=== PATIENT | male | born 1990 | race Caucasian/White ===

== ENCOUNTER 2016-04-22 23:07 | Emergency (ER) | payer BC, OTHER ==
[2016-04-22 23:19] LABS: MEAN CORPUSCULAR HEMOGLOBIN 29.8 pg (27.0-33.0); MEAN CORPUSCULAR HGB CONC 34.4 g/dl (32.0-36.5); MEAN CORPUSCULAR VOLUME 86.6 fl (80.0-96.0); RED CELL DISTRIBUTION WIDTH 12.8 % (11.5-14.5); WHITE BLOOD COUNT 9.9 K/mm3 (4.0-10.0)
[2016-04-22 23:47] LABS: ANION GAP 9 MEQ/L (8-16); BLOOD UREA NITROGEN 13 MG/DL (7-18); CALCIUM LEVEL 8.8 MG/DL (8.5-10.1); CARBON DIOXIDE LEVEL 25 MEQ/L (21-32); CHLORIDE LEVEL 108 MEQ/L (98-107); CREATININE FOR GFR 0.97 MG/DL (0.70-1.30); GLOMERULAR FILTRATION RATE > 60.0 (>60); GLUCOSE, FASTING 109 MG/DL (70-105); POTASSIUM SERUM 3.1 MEQ/L (3.5-5.1); SODIUM LEVEL 142 MEQ/L (136-145)
[2016-04-23 00:13] LABS: AMPHETAMINES LEVEL URINE NEGATIVE (NEGATIVE); BENZODIAZEPINES URINE NEGATIVE (NEGATIVE); COCAINE METABOLITE URINE NEGATIVE (NEGATIVE); CONTROL LINE INT CTR LINE PRESENT; METHADONE URINE NEGATIVE (NEGATIVE); OPIATES URINE NEGATIVE (NEGATIVE); TRICYCLIC ANTIDEPRESS URINE NEGATIVE (NEGATIVE)
--- NOTE | 2016-04-23 00:40 | REPUSA ---
CT of the head Clinical history: altered mental status. Comparison: 03/20/2014. Technique: Multiple axial CT images were obtained through the head without administration of contrast . Findings: The ventricles and sulci are symmetric bilaterally. There is no evidence of acute hemorrhag e or infarct. There is no midline shift, mass effect, or extra-axial fluid collection. The osseous st ructures are unremarkable. The visualized paranasal sinuses and mastoid air cells are clear. Impression: Negative study.
[2016-04-23] MEDS ORDERED: POTASSIUM CHLORIDE 10 MEQ SR TABLET As Ordered ONE (01:19)
--- NOTE | 2016-04-23 01:34 | EDDOCDS ---
Physician Documentation [facility] Name: Carlos Manuel John Age: 25 yrs Sex: Male : 1990 Arrival Date: 04/22/2016 Time: 23:07 Bed 1 Private MD: Disposition: 04/23/16 01:08 Discharged to Home/Self Care. Impression: Alcohol abuse with intoxication, Hypokalemia. - Condition is Stable. - Medication Reconciliation, Local Pharmacy Hours form. - Follow up: Private Physician; When: Call to arrange an appointment; Reason: Recheck today's complaints. - Problem is new. - Symptoms have improved. Historical: - Allergies: No known drug Allergies; - Home Meds: 1. "natural pain remedy" - PMHx: back pain; - PSHx: none; - Social history: Smoking status: Patient states was never smoker of tobacco. No barriers to communication noted, The patient speaks fluent Lithuanian, Speaks appropriately for age. - Family history: Not pertinent. - : The pt / caregiver states he / she is not on anticoagulants. Home medication list is obtained from the patient. - Exposure Risk Screening:: None identified. Vital Signs: 04/22 23:13 BP 144 / 92 (auto/); js15 23:13 Pulse 87 MON; Resp 50; Pulse Ox 100% on 100% Non-rebreather mask; Weight 92.08 kg / 203 js15 lbs; Height 5 ft. 9 in. (175.26 cm); Pain 0/10; 23:22 Temp 97.5; js15 04/23 01:30 BP 119 / 62; Pulse 91; Resp 20; Temp 96.6(O); Pulse Ox 96% on R/A; Pain 4/10; js15 04/22 23:13 Body Mass Index 29.98 (92.08 kg, 175.26 cm) js15 MDM: 04/22 23:14 Oxygen at 15 Liters/Minute NRB Mask ordered. cs11 23:14 IV Saline Lock ordered. cs11 23:15 CBC Ordered. EDMS 23:15 MED Profile Ordered. EDMS 23:15 Alcohol Ordered. EDMS 23:15 Carboxyhemoglobin Ordered. EDMS 23:15 Urine Toxicology: cath Ordered. EDMS 23:15 CT Head Without Contrast Ordered. EDMS 23:55 Financial registration complete. zo 23:56 [facility] Payment Agreement was scanned into [employer] and attached to record. zo 04/23 00:00 MED Profile Reviewed. cs11 00:00 Alcohol Reviewed. cs11 00:00 CBC Reviewed. cs11 00:00 Carboxyhemoglobin Reviewed. cs11 01:06 Urine Toxicology: cath Reviewed. cs11 01:06 CT Head Without Contrast Reviewed. cs11 01:08 Potassium Chloride Extended Release Tablet 20 mEq PO once ordered. cs11 Administered Medications: 01:25 Drug: Potassium Chloride 20 mEq [potassium chloride ER 10 mEq tablet,extended release js15 (2 tabs)] Route: PO; Signatures: Dispatcher [employer] EDMS Rachelle Kay Craig, DO DO cs11 Jesi Wise,RN RN js15 The chart was reviewed and I authenticate all verbal orders and agree with the evaluation and treatment provided.Attachments: 04/22 23:56 [facility] Payment Agreement zo MTDD
--- NOTE | 2016-04-23 01:34 | EDDOCDS ---
Nurse's Notes [facility] Name: Carlos Manuel John Age: 25 yrs Sex: Male : 1990 Arrival Date: 04/22/2016 Time: 23:07 Bed 1 Private MD: Diagnosis: Alcohol abuse with intoxication;Hypokalemia Presentation: 04/22 23:09 Presenting complaint: EMS states: Pt was working in his garage with a salamander heater js15 running; was found by to be semi conscious; pt told EMS that he thinks he lost consciousness; admitted to drinking ETOH tonight; was awake and alert on arrival to scene and became increasingly lethargic in route; responds to painful stimuli on arrival to ED and occasionally opens eyes. Adult Sepsis Screening: Patient has new or worsening altered mentation (1 point). Patient has a respiratory rate of greater than or equal to 22 (1 point). Systolic blood pressure is greater than 100. Patient has a qSOFA score of 2. No known or suspected infection- Negative Sepsis Screen. Suicide/Homicide risk assessment- Unable to assess, the patient has an altered level of consciousness. 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 Transition of care: patient was not received from another setting of care. 23:09 Acuity: PRADIP Level 2 js15 23:09 Method Of Arrival: Ambulance js15 23:15 Presenting complaint: Pt becoming increasingly alert and responding appropriately to js15 questions. Triage Assessment: 23:19 General: Appears in no apparent distress, Behavior is drowsy. Pain: Denies pain. HIV js15 screening NA for this visit Offered previously. Neurological: Level of Consciousness is lethargic, Oriented to person, place, time. Cardiovascular: Rhythm is sinus rhythm. Respiratory: Airway is patent Respiratory effort is labored, shallow, Respiratory pattern is regular, tachypnea. Derm: Skin is pink, warm & dry. Historical: - Allergies: No known drug Allergies; - Home Meds: 1. "natural pain remedy" - PMHx: back pain; - PSHx: none; - Social history: Smoking status: Patient states was never smoker of tobacco. No barriers to communication noted, The patient speaks fluent East Timorese, Speaks appropriately for age. - Family history: Not pertinent. - : The pt / caregiver states he / she is not on anticoagulants. Home medication list is obtained from the patient. - Exposure Risk Screening:: None identified. Screenin/21 00:00 Screening information is obtained from the patient. Fall risk: At risk due to prior [facility] history of falls, The following interventions are performed due to a positive Fall Risk Screen: side rails upx2, bed in low position, call light in reach, family at bedside, placed in front of nurses station. Assistance ADL's: requires no assistance with activities of daily living. Abuse/DV Screen: The patient / caregiver reports he/she is: not in a situation that causes fear, pain or injury. Nutritional screening: No deficits noted. Advance Directives: There is no active DNR order. home support is adequate. Assessment: 04/22 23:22 General: see triage note. Cardiovascular: Heart tones S1 S2 present. Respiratory: [facility] Breath sounds are clear bilaterally. 04/23 00:30 Reassessment: Patient appears in no apparent distress at this time. Patient states js15 feeling better. Patient states symptoms have improved. Pt awake and alert, talking with family at bedside; respirations even and unlabored; skin pink, warm, dry. 01:30 General: Appears in no apparent distress, Behavior is appropriate for age, cooperative. js15 Pain: Location: back Pain currently is 4 out of 10 on a pain scale. Neurological: Level of Consciousness is awake, alert, obeys commands, Oriented to person, place, time. Cardiovascular: Rhythm is sinus rhythm. Respiratory: Airway is patent Respiratory effort is even, unlabored, Respiratory pattern is regular, symmetrical. Derm: Skin is pink, warm & dry. Vital Signs: 04/22 23:13 BP 144 / 92 (auto/); 15 23:13 Pulse 87 MON; Resp 50; Pulse Ox 100% on 100% Non-rebreather mask; Weight 92.08 kg; js15 Height 5 ft. 9 in. (175.26 cm); Pain 0/10; 23:22 Temp 97.5; js15 04/23 01:30 BP 119 / 62; Pulse 91; Resp 20; Temp 96.6(O); Pulse Ox 96% on R/A; Pain 4/10; js15 04/22 23:13 Body Mass Index 29.98 (92.08 kg, 175.26 cm) [facility] Vitals: 04/22 23:19 Log In Time N/A - ambulance arrival. js15 ED Course: 23:08 Patient visited by Gigi Tamayo, Office Machines Teacher. ml3 23:08 Patient moved to Waiting ml3 23:09 Patient moved to 1 ml3 23:10 Braeden Vidal DO is Attending Physician. cs11 23:10 Patient visited by Braeden Vidal DO. cs11 23:14 Triage Initiated js15 23:15 Maintain field IV. Dressing intact. Good blood return noted. Site clean & dry. Gauge & js15 site: 18 g LAC. 23:19 Carboxyhemoglobin Sent. ko2 23:19 Alcohol Sent. ko2 23:19 MED Profile Sent. ko2 23:19 CBC Sent. ko2 23:41 Urine Toxicology: cath Sent. js15 23:56 [facility] Payment Agreement was scanned into [employer] and attached to record. zo 04/23 00:00 The patient / caregiver is instructed regarding the plan of care and ED course. js15 00:54 CT Head Without Contrast Returned. EDMS 01:00 Patient visited by Randell Hughes PCA. kb5 01:33 No procedures done that require assistance. js15 Administered Medications: 01:25 Drug: Potassium Chloride 20 mEq [potassium chloride ER 10 mEq tablet,extended release js15 (2 tabs)] Route: PO; RT: 04/22 23:05 O2 via non-rebreather \\T\\ 15L/min. bb3 23:09 Respiratory: etC02 trending 20-27mmHg. bb3 23:14 Respiratory: Breath sounds are clear bilaterally. bb3 23:16 Respiratory: NRB removed per carboxy results. bb3 Order Results: Lab Order: CBC; SPEC'M 04/22/16 23:12 Test: WHITE BLOOD COUNT; Value: 9.9; Range: 4.0-10.0; Units: K/mm3; Status: F Test: RED BLOOD COUNT; Value: 5.12; Range: 4.30-6.10; Units: M/mm3; Status: F Test: HEMOGLOBIN; Value: 15.3; Range: 14.0-18.0; Units: g/dl; Status: F Test: HEMATOCRIT; Value: 44.4; Range: 42.0-52.0; Units: %; Status: F Test: MEAN CORPUSCULAR VOLUME; Value: 86.6; Range: 80.0-96.0; Units: fl; Status: F Test: MEAN CORPUSCULAR HEMOGLOBIN; Value: 29.8; Range: 27.0-33.0; Units: pg; Status: F Test: MEAN CORPUSCULAR HGB CONC; Value: 34.4; Range: 32.0-36.5; Units: g/dl; Status: F Test: RED CELL DISTRIBUTION WIDTH; Value: 12.8; Range: 11.5-14.5; Units: %; Status: F Test: PLATELET COUNT, AUTOMATED; Value: 198; Range: 150-450; Units: k/mm3; Status: F Lab Order: MED Profile; [facility] 04/22/16 23:12 Test: GLUCOSE, FASTING; Value: 109; Range: 70-105; Abnormal: Above high normal; Units: MG/DL; Status: F Test: BLOOD UREA NITROGEN; Value: 13; Range: 7-18; Units: MG/DL; Status: F Test: CREATININE FOR GFR; Value: 0.97; Range: 0.70-1.30; Units: MG/DL; Status: F Test: GLOMERULAR FILTRATION RATE; Value: > 60.0; Range: >60; Status: F Test: SODIUM LEVEL; Value: 142; Range: 136-145; Units: MEQ/L; Status: F Test: POTASSIUM SERUM; Value: 3.1; Range: 3.5-5.1; Abnormal: Below low normal; Units: MEQ/L; Status: F Test: CHLORIDE LEVEL; Value: 108; Range: 98-107; Abnormal: Above high normal; Units: MEQ/L; Status: F Test: CARBON DIOXIDE LEVEL; Value: 25; Range: 21-32; Units: MEQ/L; Status: F Test: ANION GAP; Value: 9; Range: 8-16; Units: MEQ/L; Status: F Test: CALCIUM LEVEL; Value: 8.8; Range: 8.5-10.1; Units: MG/DL; Status: F Test Note: ; Units are mL/min/1.73 m2 Chronic Kidney Disease Staging per NKF: Stage I & II GFR >=60 Normal to Mildly Decreased Stage III GFR 30-59 Moderately Decreased Stage IV GFR 15-29 Severely Decreased Stage V GFR <15 Very Little GFR Left ESRD GFR <15 on BOARDING HOUSE MANAGER Lab Order: Alcohol; SPEC'M 04/22/16 23:12 Test: ETHYL ALCOHOL (ETHANOL); Value: 0.156; Range: 0.000-0.010; Abnormal: Above high normal; Units: %; Status: F Lab Order: Carboxyhemoglobin; SPEC'M 04/22/16 23:12 Test: CARBOXYHEMOGLOBIN; Value: 1.4; Range: 0.0-1.5; Units: %; Status: F Test Note: ; CARBOXYHEMOGLOBIN EXPECTED VALUES [place] NON-SMOKERS LESS THAN 1.5% SMOKERS 1.5-5.0% HEAVY SMOKERS 5.0-9.0% Lab Order: Urine Toxicology: cath; SPEC'M 04/22/16 23:38 Test: AMPHETAMINES LEVEL URINE; Value: NEGATIVE; Range: NEGATIVE; Status: F Test: BARBITURATES URINE; Value: NEGATIVE; Range: NEGATIVE; Status: F Test: BENZODIAZEPINES URINE; Value: NEGATIVE; Range: NEGATIVE; Status: F Test: CANNABINOIDS URINE; Value: NEGATIVE; Range: NEGATIVE; Status: F Test: COCAINE METABOLITE URINE; Value: NEGATIVE; Range: NEGATIVE; Status: F Test: METHADONE URINE; Value: NEGATIVE; Range: NEGATIVE; Status: F Test: OPIATES URINE; Value: NEGATIVE; Range: NEGATIVE; Status: F Test: TRICYCLIC ANTIDEPRESS URINE; Value: NEGATIVE; Range: NEGATIVE; Status: F Test Note: ; ALL PRESUMPTIVE POSITIVE FINDINGS ARE UNCONFIRMED NORMAL VALUES THRESHOLD IN NG/ML AMPHETAMINES 1000 METHAMPHETAMINES 1000 BARBITURATES 300 BENZODIAZEPINES 300 CANNABINOIDS (THC) 50 COCAINE METABOLITE 300 METHADONE 300 OPIATES 300 PHENCYCLIDINE 25 TRICYCLIC ANTIDEPRESSANTS 1000 RESULTS ARE FOR MEDICAL PURPOSES ONLY. ALL URINE SPECIMENS WILL BE SAVED FOR 3 DAYS. IF CONFIRMATION OF A PRESUMPTIVE POSTIVE SCREEN RESULT IS DESIRED, CALL CHEMISTRY ([phone]) AND REQUEST URINE TO BE SENT TO REFERENCE LAB. FOR A LIST OF CLOSELY RELATED COMPOUNDS PLEASE CALL THE LAB. Radiology Order: CT Head Without Contrast Test: CT Head Without Contrast REASON FOR EXAMINATION: aloc; ; CT of the head; Clinical history: altered mental status.; Comparison: 03/20/2014.; Technique: Multiple axial CT images were obtained through the head without administration of contrast; .; Findings: The ventricles and sulci are symmetric bilaterally. There is no evidence of acute hemorrhag; e or infarct. There is no midline shift, mass effect, or extra-axial fluid collection. The osseous st; ructures are unremarkable. The visualized paranasal sinuses and mastoid air cells are clear.; Impression: Negative study.; ; Outcome: 04/23 01:08 Discharge ordered by Provider. cs11 01:33 Discharge Assessment: Patient awake, alert and oriented x 3. No cognitive and/or js15 functional deficits noted. Patient verbalized understanding of disposition instructions. patient administered narcotics - no. The following High Risk Discharge criteria are identified: None. Discharged to home ambulatory, with significant other. Condition: stable. Discharge instructions given to patient, significant other, Instructed on discharge instructions, follow up and referral plans. no driving heavy equipment, Demonstrated understanding of instructions, Pt was receptive of discharge instructions/ teaching. CT Study completed. Property sent home with patient. 01:34 Patient left the ED. js15 Signatures: Dispatcher [employer] EDMS Gigi Tamayo, Office Machines Teacher Unit ml3 Rachelle Kay Kristopher, DRYING ROOM ATTENDANT DRYING ROOM ATTENDANT kb5 Arian Guo bb3 Braeden Vidal, DO cs11 Rody Payne,RN RN ko2 Jesi Wise,RN RN js15 MTDD
--- NOTE | 2016-04-25 02:34 | EDDOCDS ---
Physician Documentation [facility] Name: Carlos Manuel John Age: 25 yrs Sex: Male : 1990 Arrival Date: 04/22/2016 Time: 23:07 Bed 1 Private MD: Disposition: 04/23/16 01:08 Discharged to Home/Self Care. Impression: Alcohol abuse with intoxication, Hypokalemia. - Condition is Stable. - Medication Reconciliation, Local Pharmacy Hours form. - Follow up: Private Physician; When: Call to arrange an appointment; Reason: Recheck today's complaints. - Problem is new. - Symptoms have improved. Historical: - Allergies: No known drug Allergies; - Home Meds: 1. "natural pain remedy" - PMHx: back pain; - PSHx: none; - Social history: Smoking status: Patient states was never smoker of tobacco. No barriers to communication noted, The patient speaks fluent Mongolian, Speaks appropriately for age. - Family history: Not pertinent. - : The pt / caregiver states he / she is not on anticoagulants. Home medication list is obtained from the patient. - Exposure Risk Screening:: None identified. Vital Signs: 04/22 23:13 BP 144 / 92 (auto/); js15 23:13 Pulse 87 MON; Resp 50; Pulse Ox 100% on 100% Non-rebreather mask; Weight 92.08 kg / 203 js15 lbs; Height 5 ft. 9 in. (175.26 cm); Pain 0/10; 23:22 Temp 97.5; js15 04/23 01:30 BP 119 / 62; Pulse 91; Resp 20; Temp 96.6(O); Pulse Ox 96% on R/A; Pain 4/10; js15 04/22 23:13 Body Mass Index 29.98 (92.08 kg, 175.26 cm) js15 MDM: 04/22 23:14 Oxygen at 15 Liters/Minute NRB Mask ordered. cs11 23:14 IV Saline Lock ordered. cs11 23:15 CBC Ordered. EDMS 23:15 MED Profile Ordered. EDMS 23:15 Alcohol Ordered. EDMS 23:15 Carboxyhemoglobin Ordered. EDMS 23:15 Urine Toxicology: cath Ordered. EDMS 23:15 CT Head Without Contrast Ordered. EDMS 23:55 Financial registration complete. zo 23:56 [facility] Payment Agreement was scanned into [employer] and attached to record. zo 04/23 00:00 MED Profile Reviewed. cs11 00:00 Alcohol Reviewed. cs11 00:00 CBC Reviewed. cs11 00:00 Carboxyhemoglobin Reviewed. cs11 01:06 Urine Toxicology: cath Reviewed. cs11 01:06 CT Head Without Contrast Reviewed. cs11 01:08 Potassium Chloride Extended Release Tablet 20 mEq PO once ordered. cs11 10:11 T-Sheet-- Draft Copy was scanned into [employer] and attached to record. gb 10:11 Radiology Report was scanned into [employer] and attached to record. gb Administered Medications: 01:25 Drug: Potassium Chloride 20 mEq [potassium chloride ER 10 mEq tablet,extended release js15 (2 tabs)] Route: PO; Signatures: Dispatcher [employer] EDMS Rosalinda Lorenz, Reg Reg gb Rachelle Kay Craig, DO DO cs11 Jesi Wise,RN RN js15 The chart was reviewed and I authenticate all verbal orders and agree with the evaluation and treatment provided.Attachments: 04/22 23:56 [facility] Payment Agreement zo 04/23 10:11 T-Sheet-- Draft Copy gb Chart Complete MTDD
--- NOTE | 2016-04-25 02:34 | EDDOCDS ---
Physician Documentation [facility] Name: Carlos Manuel John Age: 25 yrs Sex: Male : 1990 Arrival Date: 04/22/2016 Time: 23:07 Bed 1 Private MD: Disposition: 04/23/16 01:08 Discharged to Home/Self Care. Impression: Alcohol abuse with intoxication, Hypokalemia. - Condition is Stable. - Medication Reconciliation, Local Pharmacy Hours form. - Follow up: Private Physician; When: Call to arrange an appointment; Reason: Recheck today's complaints. - Problem is new. - Symptoms have improved. Historical: - Allergies: No known drug Allergies; - Home Meds: 1. "natural pain remedy" - PMHx: back pain; - PSHx: none; - Social history: Smoking status: Patient states was never smoker of tobacco. No barriers to communication noted, The patient speaks fluent [place]er, Speaks appropriately for age. - Family history: Not pertinent. - : The pt / caregiver states he / she is not on anticoagulants. Home medication list is obtained from the patient. - Exposure Risk Screening:: None identified. Vital Signs: 04/22 23:13 BP 144 / 92 (auto/); js15 23:13 Pulse 87 MON; Resp 50; Pulse Ox 100% on 100% Non-rebreather mask; Weight 92.08 kg / 203 js15 lbs; Height 5 ft. 9 in. (175.26 cm); Pain 0/10; 23:22 Temp 97.5; js15 04/23 01:30 BP 119 / 62; Pulse 91; Resp 20; Temp 96.6(O); Pulse Ox 96% on R/A; Pain 4/10; js15 04/22 23:13 Body Mass Index 29.98 (92.08 kg, 175.26 cm) js15 MDM: 04/22 23:14 Oxygen at 15 Liters/Minute NRB Mask ordered. cs11 23:14 IV Saline Lock ordered. cs11 23:15 CBC Ordered. EDMS 23:15 MED Profile Ordered. EDMS 23:15 Alcohol Ordered. EDMS 23:15 Carboxyhemoglobin Ordered. EDMS 23:15 Urine Toxicology: cath Ordered. EDMS 23:15 CT Head Without Contrast Ordered. EDMS 23:55 Financial registration complete. zo 23:56 [facility] Payment Agreement was scanned into [employer] and attached to record. zo 04/23 00:00 MED Profile Reviewed. cs11 00:00 Alcohol Reviewed. cs11 00:00 CBC Reviewed. cs11 00:00 Carboxyhemoglobin Reviewed. cs11 01:06 Urine Toxicology: cath Reviewed. cs11 01:06 CT Head Without Contrast Reviewed. cs11 01:08 Potassium Chloride Extended Release Tablet 20 mEq PO once ordered. cs11 10:11 T-Sheet-- Draft Copy was scanned into [employer] and attached to record. gb 10:11 Radiology Report was scanned into [employer] and attached to record. gb Administered Medications: 01:25 Drug: Potassium Chloride 20 mEq [potassium chloride ER 10 mEq tablet,extended release js15 (2 tabs)] Route: PO; Signatures: Dispatcher [employer] EDMS Rosalinda Lorenz, Reg Reg gb Rachelle Kay Craig, DO DO cs11 Jesi Wise,RN RN js15 The chart was reviewed and I authenticate all verbal orders and agree with the evaluation and treatment provided.Attachments: 04/22 23:56 [facility] Payment Agreement zo 04/23 10:11 T-Sheet-- Draft Copy gb Chart Complete MTDD
--- NOTE | 2016-04-25 02:34 | EDDOCDS ---
Nurse's Notes [facility] Name: Carlos Manuel John Age: 25 yrs Sex: Male : 1990 Arrival Date: 04/22/2016 Time: 23:07 Bed 1 Private MD: Diagnosis: Alcohol abuse with intoxication;Hypokalemia Presentation: 04/22 23:09 Presenting complaint: EMS states: Pt was working in his garage with a salamander heater js15 running; was found by to be semi conscious; pt told EMS that he thinks he lost consciousness; admitted to drinking ETOH tonight; was awake and alert on arrival to scene and became increasingly lethargic in route; responds to painful stimuli on arrival to ED and occasionally opens eyes. Adult Sepsis Screening: Patient has new or worsening altered mentation (1 point). Patient has a respiratory rate of greater than or equal to 22 (1 point). Systolic blood pressure is greater than 100. Patient has a qSOFA score of 2. No known or suspected infection- Negative Sepsis Screen. Suicide/Homicide risk assessment- Unable to assess, the patient has an altered level of consciousness. 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 Transition of care: patient was not received from another setting of care. 23:09 Acuity: PRADIP Level 2 js15 23:09 Method Of Arrival: Ambulance js15 23:15 Presenting complaint: Pt becoming increasingly alert and responding appropriately to js15 questions. Triage Assessment: 23:19 General: Appears in no apparent distress, Behavior is drowsy. Pain: Denies pain. HIV js15 screening NA for this visit Offered previously. Neurological: Level of Consciousness is lethargic, Oriented to person, place, time. Cardiovascular: Rhythm is sinus rhythm. Respiratory: Airway is patent Respiratory effort is labored, shallow, Respiratory pattern is regular, tachypnea. Derm: Skin is pink, warm & dry. Historical: - Allergies: No known drug Allergies; - Home Meds: 1. "natural pain remedy" - PMHx: back pain; - PSHx: none; - Social history: Smoking status: Patient states was never smoker of tobacco. No barriers to communication noted, The patient speaks fluent Guatem[place], Speaks appropriately for age. - Family history: Not pertinent. - : The pt / caregiver states he / she is not on anticoagulants. Home medication list is obtained from the patient. - Exposure Risk Screening:: None identified. Screenin/21 00:00 Screening information is obtained from the patient. Fall risk: At risk due to prior [facility] history of falls, The following interventions are performed due to a positive Fall Risk Screen: side rails upx2, bed in low position, call light in reach, family at bedside, placed in front of nurses station. Assistance ADL's: requires no assistance with activities of daily living. Abuse/DV Screen: The patient / caregiver reports he/she is: not in a situation that causes fear, pain or injury. Nutritional screening: No deficits noted. Advance Directives: There is no active DNR order. home support is adequate. Assessment: 04/22 23:22 General: see triage note. Cardiovascular: Heart tones S1 S2 present. Respiratory: [facility] Breath sounds are clear bilaterally. 04/23 00:30 Reassessment: Patient appears in no apparent distress at this time. Patient states js15 feeling better. Patient states symptoms have improved. Pt awake and alert, talking with family at bedside; respirations even and unlabored; skin pink, warm, dry. 01:30 General: Appears in no apparent distress, Behavior is appropriate for age, cooperative. js15 Pain: Location: back Pain currently is 4 out of 10 on a pain scale. Neurological: Level of Consciousness is awake, alert, obeys commands, Oriented to person, place, time. Cardiovascular: Rhythm is sinus rhythm. Respiratory: Airway is patent Respiratory effort is even, unlabored, Respiratory pattern is regular, symmetrical. Derm: Skin is pink, warm & dry. Vital Signs: 04/22 23:13 BP 144 / 92 (auto/); 15 23:13 Pulse 87 MON; Resp 50; Pulse Ox 100% on 100% Non-rebreather mask; Weight 92.08 kg; js15 Height 5 ft. 9 in. (175.26 cm); Pain 0/10; 23:22 Temp 97.5; js15 04/23 01:30 BP 119 / 62; Pulse 91; Resp 20; Temp 96.6(O); Pulse Ox 96% on R/A; Pain 4/10; js15 04/22 23:13 Body Mass Index 29.98 (92.08 kg, 175.26 cm) [facility] Vitals: 04/22 23:19 Log In Time N/A - ambulance arrival. js15 ED Course: 23:08 Patient visited by Gigi Tamayo, Bus Van Driver. ml3 23:08 Patient moved to Waiting ml3 23:09 Patient moved to 1 ml3 23:10 Braeden Vidal DO is Attending Physician. cs11 23:10 Patient visited by Braeden Vidal DO. cs11 23:14 Triage Initiated js15 23:15 Maintain field IV. Dressing intact. Good blood return noted. Site clean & dry. Gauge & js15 site: 18 g LAC. 23:19 Carboxyhemoglobin Sent. ko2 23:19 Alcohol Sent. ko2 23:19 MED Profile Sent. ko2 23:19 CBC Sent. ko2 23:41 Urine Toxicology: cath Sent. js15 23:56 [facility] [place], [place] Payment Agreement was scanned into Heartbeat and attached to record. zo 04/23 00:00 The patient / caregiver is instructed regarding the plan of care and ED course. js15 00:54 CT Head Without Contrast Returned. EDMS 01:00 Patient visited by Randell Hughes PCA. kb5 01:33 No procedures done that require assistance. js15 10:11 T-Sheet-- Draft Copy was scanned into Heartbeat and attached to record. gb 10:11 Radiology Report was scanned into Heartbeat and attached to record. gb Administered Medications: 01:25 Drug: Potassium Chloride 20 mEq [potassium chloride ER 10 mEq tablet,extended release js15 (2 tabs)] Route: PO; RT: 04/22 23:05 O2 via non-rebreather \\T\\ 15L/min. bb3 23:09 Respiratory: etC02 trending 20-27mmHg. bb3 23:14 Respiratory: Breath sounds are clear bilaterally. bb3 23:16 Respiratory: NRB removed per carboxy results. bb3 Order Results: Lab Order: CBC; SPEC'M 04/22/16 23:12 Test: WHITE BLOOD COUNT; Value: 9.9; Range: 4.0-10.0; Units: K/mm3; Status: F Test: RED BLOOD COUNT; Value: 5.12; Range: 4.30-6.10; Units: M/mm3; Status: F Test: HEMOGLOBIN; Value: 15.3; Range: 14.0-18.0; Units: g/dl; Status: F Test: HEMATOCRIT; Value: 44.4; Range: 42.0-52.0; Units: %; Status: F Test: MEAN CORPUSCULAR VOLUME; Value: 86.6; Range: 80.0-96.0; Units: fl; Status: F Test: MEAN CORPUSCULAR HEMOGLOBIN; Value: 29.8; Range: 27.0-33.0; Units: pg; Status: F Test: MEAN CORPUSCULAR HGB CONC; Value: 34.4; Range: 32.0-36.5; Units: g/dl; Status: F Test: RED CELL DISTRIBUTION WIDTH; Value: 12.8; Range: 11.5-14.5; Units: %; Status: F Test: PLATELET COUNT, AUTOMATED; Value: 198; Range: 150-450; Units: k/mm3; Status: F Lab Order: MED Profile; [facility] 04/22/16 23:12 Test: GLUCOSE, FASTING; Value: 109; Range: 70-105; Abnormal: Above high normal; Units: MG/DL; Status: F Test: BLOOD UREA NITROGEN; Value: 13; Range: 7-18; Units: MG/DL; Status: F Test: CREATININE FOR GFR; Value: 0.97; Range: 0.70-1.30; Units: MG/DL; Status: F Test: GLOMERULAR FILTRATION RATE; Value: > 60.0; Range: >60; Status: F Test: SODIUM LEVEL; Value: 142; Range: 136-145; Units: MEQ/L; Status: F Test: POTASSIUM SERUM; Value: 3.1; Range: 3.5-5.1; Abnormal: Below low normal; Units: MEQ/L; Status: F Test: CHLORIDE LEVEL; Value: 108; Range: 98-107; Abnormal: Above high normal; Units: MEQ/L; Status: F Test: CARBON DIOXIDE LEVEL; Value: 25; Range: 21-32; Units: MEQ/L; Status: F Test: ANION GAP; Value: 9; Range: 8-16; Units: MEQ/L; Status: F Test: CALCIUM LEVEL; Value: 8.8; Range: 8.5-10.1; Units: MG/DL; Status: F Test Note: ; Units are mL/min/1.73 m2 Chronic Kidney Disease Staging per NKF: Stage I & II GFR >=60 Normal to Mildly Decreased Stage III GFR 30-59 Moderately Decreased Stage IV GFR 15-29 Severely Decreased Stage V GFR <15 Very Little GFR Left ESRD GFR <15 on EXECUTIVE ADMINISTRATOR Lab Order: Alcohol; SPEC'M 04/22/16 23:12 Test: ETHYL ALCOHOL (ETHANOL); Value: 0.156; Range: 0.000-0.010; Abnormal: Above high normal; Units: %; Status: F Lab Order: Carboxyhemoglobin; SPEC'M 04/22/16 23:12 Test: CARBOXYHEMOGLOBIN; Value: 1.4; Range: 0.0-1.5; Units: %; Status: F Test Note: ; CARBOXYHEMOGLOBIN EXPECTED VALUES SUBURBAN NON-SMOKERS LESS THAN 1.5% SMOKERS 1.5-5.0% HEAVY SMOKERS 5.0-9.0% Lab Order: Urine Toxicology: cath; SPEC'M 04/22/16 23:38 Test: AMPHETAMINES LEVEL URINE; Value: NEGATIVE; Range: NEGATIVE; Status: F Test: BARBITURATES URINE; Value: NEGATIVE; Range: NEGATIVE; Status: F Test: BENZODIAZEPINES URINE; Value: NEGATIVE; Range: NEGATIVE; Status: F Test: CANNABINOIDS URINE; Value: NEGATIVE; Range: NEGATIVE; Status: F Test: COCAINE METABOLITE URINE; Value: NEGATIVE; Range: NEGATIVE; Status: F Test: METHADONE URINE; Value: NEGATIVE; Range: NEGATIVE; Status: F Test: OPIATES URINE; Value: NEGATIVE; Range: NEGATIVE; Status: F Test: TRICYCLIC ANTIDEPRESS URINE; Value: NEGATIVE; Range: NEGATIVE; Status: F Test Note: ; ALL PRESUMPTIVE POSITIVE FINDINGS ARE UNCONFIRMED NORMAL VALUES THRESHOLD IN NG/ML AMPHETAMINES 1000 METHAMPHETAMINES 1000 BARBITURATES 300 BENZODIAZEPINES 300 CANNABINOIDS (THC) 50 COCAINE METABOLITE 300 METHADONE 300 OPIATES 300 PHENCYCLIDINE 25 TRICYCLIC ANTIDEPRESSANTS 1000 RESULTS ARE FOR MEDICAL PURPOSES ONLY. ALL URINE SPECIMENS WILL BE SAVED FOR 3 DAYS. IF CONFIRMATION OF A PRESUMPTIVE POSTIVE SCREEN RESULT IS DESIRED, CALL CHEMISTRY ([phone]) AND REQUEST URINE TO BE SENT TO REFERENCE LAB. FOR A LIST OF CLOSELY RELATED COMPOUNDS PLEASE CALL THE LAB. Radiology Order: CT Head Without Contrast Test: CT Head Without Contrast REASON FOR EXAMINATION: aloc; ; CT of the head; Clinical history: altered mental status.; Comparison: 03/20/2014.; Technique: Multiple axial CT images were obtained through the head without administration of contrast; .; Findings: The ventricles and sulci are symmetric bilaterally. There is no evidence of acute hemorrhag; e or infarct. There is no midline shift, mass effect, or extra-axial fluid collection. The osseous st; ructures are unremarkable. The visualized paranasal sinuses and mastoid air cells are clear.; Impression: Negative study.; ; Outcome: 04/23 01:08 Discharge ordered by Provider. cs11 01:33 Discharge Assessment: Patient awake, alert and oriented x 3. No cognitive and/or js15 functional deficits noted. Patient verbalized understanding of disposition instructions. patient administered narcotics - no. The following High Risk Discharge criteria are identified: None. Discharged to home ambulatory, with significant other. Condition: stable. Discharge instructions given to patient, significant other, Instructed on discharge instructions, follow up and referral plans. no driving heavy equipment, Demonstrated understanding of instructions, Pt was receptive of discharge instructions/ teaching. CT Study completed. Property sent home with patient. 01:34 Patient left the ED. js15 Signatures: Dispatcher [employer] EDMS Rosalinda Lorenz, Jacques Reg Gigi Wyatt, Bus Van Driver Unit ml3 Rachelle Kay Kristopher, WHEEL INSTALLER WHEEL INSTALLER kb5 Arian Guo bb3 Braeden Vidal, DO DO cs11 Rody Payne,RN RN ko2 Jesi Wise,RN RN js15 Chart Complete MTDD
== END 2016-04-23 01:34 | disposition home or self-care (01) ==
LOC: M ED 23:07
DX: F10.129 Alcohol abuse with intoxication, unspecified (principal); E87.6 Hypokalemia; M54.9 Dorsalgia, unspecified
CPT/HCPCS: 36415; 70450; 80048; 80306; 82375; 85027; 99285; G0480

== ENCOUNTER 2018-06-12 13:27 | Day surgery (SDC) | payer BC ==
[~2018-06-12] VITALS: Ht 175.3 cm; Wt 93.0 kg
[2018-06-12] MEDS ORDERED: NS 1,000 ML IV ONE (14:30)
[2018-06-12] MEDS ORDERED: PROPOFOL 200 MG/20 ML VIAL As Ordered ONE ×3 (15:05→15:36)
[2018-06-12] MEDS ORDERED: LIDOCAINE 2% INJ 100 MG/5 ML SDV (FOR ANES.) As Ordered ONE (15:05)
--- NOTE | 2018-06-12 15:47 | ROOR ---
Patient Name: Carlos Manuel John Procedure Date: 06/12/2018 3:28 PM Date of : 1990 Age: 27 Room: [facility] Gender: Male Note Status: Finalized Procedure: Upper GI endoscopy Indications: Eructation, Regurgitation ("dry heaves 2-3 times a month") Providers: Ace ANDRE MD Referring MD: JASBIR SOLER MD Requesting Provider: Medicines: Monitored Anesthesia Care Complications: No immediate complications. Procedure: Pre-Anesthesia Assessment: - The heart rate, respiratory rate, oxygen saturations, blood pressure, adequacy of pulmonary ventilation, and response to care were monitored throughout the procedure. The Endoscope was introduced through the mouth, and advanced to the second part of duodenum. The upper GI endoscopy was accomplished without difficulty. The patient tolerated the procedure well. Findings: The esophagus was normal. The stomach was normal. The examined duodenum was normal. Biopsies were obtained with cold forceps for evaluation of eosinophilic esophagitis in the entire esophagus. Impression: - Normal esophagus. - Normal stomach. - Normal examined duodenum. - Biopsies were obtained in the entire esophagus for evaluation of eosinophilic esophagitis. Recommendation: - Use Prilosec (omeprazole) 40 mg daily for 2 more months, then stop. - Telephone endoscopist for pathology results in 2 weeks. Ace Andre MD Ace ANDRE MD 06/12/2018 3:46:20 PM This report has been signed electronically. Number of Addenda: 0 Note Initiated On: 06/12/2018 3:28 PM Estimated Blood Loss: Estimated blood loss: none.
[2018-06-12 16:12] VITALS: BP 120/67
== END 2018-06-12 16:15 | disposition home or self-care (01) ==
LOC: M OPP 13:27
PROVIDERS: ATTEND Internal Medicine Gastroenterology
DX: R14.2 Eructation (principal); R11.10 Vomiting, unspecified

== ENCOUNTER → 2021-06-11 | Outpatient (CLI) | payer BC ==
[2021-06-11 12:09] LABS: INR 0.96; PROTHROMBIN TIME 13.2 SECONDS (12.7-14.5)
[2021-06-11 12:37] LABS: ALBUMIN 4.4 GM/DL (3.2-5.2); ALT/SGPT 171 U/L (12-78); BILIRUBIN,DIRECT 0.3 MG/DL (0.0-0.2); BILIRUBIN,TOTAL 0.9 MG/DL (0.2-1.0); IMMUNOGLOBULIN A 75.3 MG/DL (70-400); IRON (FE) 178 UG/DL (65-175); PERCENT SATURATION 56.7 % (19.7-50.0); TOTAL IRON BINDING CAPACITY 314 UG/DL (250-450); TOTAL PROTEIN 7.4 GM/DL (6.4-8.2)
[2021-06-11 12:50] LABS: HEPATITIS B SURFACE ANTIGEN NEGATIVE (NEGATIVE)
[2021-06-11 13:17] LABS: HEPATITIS C VIRUS ABY INDEX 0.1 INDEX (<0.8)
[2021-06-11 13:18] LABS: HEPATITIS B CORE ANTIBODY IGM NEGATIVE (NEGATIVE)
== END ==
LOC: M LAB 10:51
PROVIDERS: ATTEND Internal Medicine Gastroenterology
DX: R94.5 Abnormal results of liver function studies (principal)

== ENCOUNTER → 2021-06-24 | Outpatient (CLI) | payer BC | LOC: M RAD 07:09 | PROVIDERS: ATTEND Internal Medicine Gastroenterology | DX: R94.5 Abnormal results of liver function studies (principal) ==

== ENCOUNTER → 2022-01-07 | Outpatient (CLI) | payer BC ==
[2022-01-07 14:27] LABS: BASO % 0.7 % (0.0-1.0); EOS # 0.2 10^3/uL (0.0-0.5); EOS % 3.2 % (0.0-3.0); HEMOGLOBIN 15.4 g/dl (13.5-17.5); LYMPH # 1.8 10^3/uL (1.5-5.0); LYMPH % 30.8 % (24.0-44.0); MEAN CORPUSCULAR HEMOGLOBIN 31.5 pg (27.0-33.0); MONO # 0.7 10^3/uL (0.0-0.8); MONO % 12.7 % (2.0-8.0); NEUTROPHILS % 52.4 % (36.0-66.0); PLATELET COUNT, AUTOMATED 155 10^3/uL (150-450); RED BLOOD COUNT 4.89 10^6/uL (4.30-6.10); WHITE BLOOD COUNT 5.7 10^3/uL (4.0-10.0)
[2022-01-07 14:42] LABS: INR 0.93; PROTHROMBIN TIME 12.9 SECONDS (12.7-14.5)
[2022-01-07 15:52] LABS: ALBUMIN 4.2 GM/DL (3.2-5.2); ALT/SGPT 208 U/L (12-78); BILIRUBIN,DIRECT 0.1 MG/DL (0.0-0.2); BILIRUBIN,TOTAL 0.4 MG/DL (0.2-1.0); BLOOD UREA NITROGEN 21 MG/DL (7-18); CALCIUM LEVEL 9.3 MG/DL (8.5-10.1); CARBON DIOXIDE LEVEL 28 MEQ/L (21-32); CHLORIDE LEVEL 107 MEQ/L (98-107); CREATININE FOR GFR 1.07 MG/DL (0.70-1.30); GLOMERULAR FILTRATION RATE > 60.0 (>60); GLUCOSE, FASTING 99 MG/DL (70-100); POTASSIUM SERUM 4.1 MEQ/L (3.5-5.1); SODIUM LEVEL 140 MEQ/L (136-145); TOTAL PROTEIN 7.2 GM/DL (6.4-8.2)
== END ==
LOC: M LAB 13:55
PROVIDERS: ATTEND Internal Medicine Gastroenterology
DX: R94.5 Abnormal results of liver function studies (principal); R79.0 Abnormal level of blood mineral

== ENCOUNTER → 2022-02-11 | Outpatient (CLI) | payer BC ==
[~2022-02-11] MED LIST: LIDOCAINE 1% MDV 20ML VIAL As Ordered ONE
[2022-02-11 11:51] VITALS: BP 119/68
== END ==
LOC: M IRPRO 09:16
PROVIDERS: ATTEND Internal Medicine Gastroenterology
DX: R94.5 Abnormal results of liver function studies (principal)